=== PATIENT | male | born 2000 | race African-American/Black ===

== ENCOUNTER 2022-11-01 00:07 | Emergency (ER) | payer OTHER ==
[2022-11-01] MEDS ORDERED: Bacitracin 1 PK ONE (01:24)
[2022-11-01] MEDS ORDERED: Ibuprofen 200 MG TAB ONE (02:35)
== END 2022-11-01 02:45 ==
LOC: NAV ERS 00:07
DX: S01.111A Laceration without foreign body of right eyelid and periocular area, initial encounter (principal); W18.09XA Striking against other object with subsequent fall, initial encounter; Y93.02 Activity, running
CPT/HCPCS: 12052